=== PATIENT | male | born 1985 ===

== ENCOUNTER 2021-05-04 02:08 | Emergency (ER) | payer SELFPAY ==
--- NOTE | 2021-05-04 03:04 | ER ---
Nurse's Notes [facility] Name: Pavan Bermudez Age: 36 yrs Sex: Male : 1985 Arrival Date: 05/04/2021 Time: 02:13 Bed 15 Private MD: Diagnosis: Presentation: 05/04 02:22 Chief complaint: Patient states: right upper quad. pain that started 3-4 hour ago, em denies cough, shortness of breath, N/V/D or fever. Coronavirus screen: Vaccine status: Patient reports being unvaccinated. Ebola Screen: Patient negative for fever greater than or equal to 101.5 degrees Fahrenheit, and additional compatible Ebola Virus Disease symptoms Patient denies exposure to infectious person. Patient denies travel to an Ebola-affected area in the 21 days before illness onset. No symptoms or risks identified at this time. Initial Sepsis Screen: Does the patient meet any 2 criteria? No. Patient's initial sepsis screen is negative. Does the patient have a suspected source of infection? No. Patient's initial sepsis screen is negative. Risk Assessment: Do you want to hurt yourself or someone else? Patient reports no desire to harm self or others. Onset of symptoms was May 04, 2021. 02:22 Method Of Arrival: Ambulatory em 02:22 Acuity: JEFF 3 em Historical: - Allergies: 02:24 No Known Allergies; em - PMHx: 02:24 None; em - PSHx: 02:24 None; em - Immunization history:: Client reports having NOT received the Covid vaccine. - Social history:: Smoking status: Patient denies any tobacco usage or history of. - Family history:: not pertinent. Screenin:34 Abuse screen: Denies threats or abuse. Nutritional screening: No deficits noted. lh3 Tuberculosis screening: Fall Risk None identified. Assessment: 02:34 Pain: Complains of pain in right upper quadrant Pain does not radiate. Pain at worst lh3 was 8 out of 10 on a pain scale. Quality of pain is described as constant Pain began 3 hours ago. Is continuous. Vital Signs: 02:22 BP 122 / 82; Pulse 66; Resp 18; Temp 96.8; Pulse Ox 100% on R/A; Weight 81.65 kg; em Height 5 ft. 11 in. (180.34 cm); Pain 7/10; 02:34 BP 120 / 80; Pulse 71; Resp 18; Pulse Ox 96% on R/A; lh3 02:22 Body Mass Index 25.10 (81.65 kg, 180.34 cm) em Kristyn Coma Score: 02:34 Eye Response: spontaneous(4). Verbal Response: oriented(5). Motor Response: obeys 3 commands(6). Total: 15. ED Course: 02:13 Patient arrived in ED. bp1 02:24 Triage completed. em 02:24 Arm band placed on. em 02:34 Patient has correct armband on for positive identification. Bed in low position. Call 3 light in reach. Side rails up X 1. Adult w/ patient. Door closed. Noise minimized. 02:34 No provider procedures requiring assistance completed. lh3 02:35 Lamont Garner MD is Attending Physician. [facility] 03:03 Patient did not have IV access during this emergency room visit. em Administered Medications: 03:02 Not Given (Patient Eloped): Pepcid (famotidine) 20 mg IVP once; dilute with 10 mL 0.9% em NaCl; give over 2 minutes 03:02 CANCELLED (Patient Eloped): morphine 4 mg IVP once; RASS on ADMIN: Combtv4, Very em Agttd3, Agttd2, Rstlss1, AlertClm0, Drwsy-1, Lt Sdtn-2, Mod Sdtn-3, Dp Sdtn-4, UnArsble-5 03:03 Not Given (Patient Eloped): NS 0.9% 1000 ml IV at 1 bolus Per protocol; 1000 mL bolus em 03:03 CANCELLED (Patient Eloped): Zofran (Ondansetron) 4 mg IVP once; over 2 minutes em Outcome: 03:03 Eloped from patient exam room, after seeing physician em 03:03 Condition: improved 03:04 Patient left the ED. em Signatures: Lamont Garner MD MD cha Munoz, Edgar, RN RN em Shirley Espinal Latisha, RN RN 3
--- NOTE | 2021-05-04 03:04 | EDPHYS ---
Physician Documentation [facility] Name: Pavan Bermudez Age: 36 yrs Sex: Male : 1985 Arrival Date: 05/04/2021 Time: 02:13 Bed 15 Private MD: ED Physician Lamont Garner HPI: 05/04 02:49 This 36 yrs old Male presents to ER via Ambulatory with complaints of Right divya Sided pain. 02:49 The patient presents with abdominal pain in the upper abdomen, in the right upper divya quadrant. Onset: The symptoms/episode began/occurred just prior to arrival, this morning. The symptoms do not radiate. Associated signs and symptoms: Pertinent positives: nausea. The symptoms are described as crampy, dull. Modifying factors: The symptoms are alleviated by nothing, the symptoms are aggravated by nothing. Severity of pain: At its worst the pain was moderate in the emergency department the pain is unchanged. The patient has not experienced similar symptoms in the past. Historical: - Allergies: 02:24 No Known Allergies; em - PMHx: 02:24 None; em - PSHx: 02:24 None; em - Immunization history:: Client reports having NOT received the Covid vaccine. - Social history:: Smoking status: Patient denies any tobacco usage or history of. - Family history:: not pertinent. ROS: 02:49 Constitutional: Negative for fever, chills, and weight loss, Eyes: Negative for injury, divya pain, redness, and discharge, ENT: Negative for injury, pain, and discharge, Neck: Negative for injury, pain, and swelling, Cardiovascular: Negative for chest pain, palpitations, and edema, Respiratory: Negative for shortness of breath, cough, wheezing, and pleuritic chest pain, Back: Negative for injury and pain, : Negative for injury, bleeding, discharge, and swelling, MS/Extremity: Negative for injury and deformity, Skin: Negative for injury, rash, and discoloration, Neuro: Negative for headache, weakness, numbness, tingling, and seizure, Psych: Negative for depression, anxiety, suicide ideation, homicidal ideation, and hallucinations, Allergy/Immunology: Negative for hives, rash, and allergies, Endocrine: Negative for neck swelling, polydipsia, polyuria, polyphagia, and marked weight changes, Hematologic/Lymphatic: Negative for swollen nodes, abnormal bleeding, and unusual bruising. 02:49 Abdomen/GI: Positive for abdominal pain, of the right upper quadrant. Exam: 02:49 Constitutional: This is a well developed, well nourished patient who is awake, alert, divya and in no acute distress. Head/Face: Normocephalic, atraumatic. Eyes: Pupils equal round and reactive to light, extra-ocular motions intact. Lids and lashes normal. Conjunctiva and sclera are non-icteric and not injected. Cornea within normal limits. Periorbital areas with no swelling, redness, or edema. ENT: Nares patent. No nasal discharge, no septal abnormalities noted. Tympanic membranes are normal and external auditory canals are clear. Oropharynx with no redness, swelling, or masses, exudates, or evidence of obstruction, uvula midline. Mucous membranes moist. Neck: Trachea midline, no thyromegaly or masses palpated, and no cervical lymphadenopathy. Supple, full range of motion without nuchal rigidity, or vertebral point tenderness. No Meningismus. Chest/axilla: Normal chest wall appearance and motion. Nontender with no deformity. No lesions are appreciated. Cardiovascular: Regular rate and rhythm with a normal S1 and S2. No gallops, murmurs, or rubs. Normal PMI, no JVD. No pulse deficits. Respiratory: Lungs have equal breath sounds bilaterally, clear to auscultation and percussion. No rales, rhonchi or wheezes noted. No increased work of breathing, no retractions or nasal flaring. Back: No spinal tenderness. No costovertebral tenderness. Full range of motion. Male : Normal genitalia with no discharge or lesions. Skin: Warm, dry with normal turgor. Normal color with no rashes, no lesions, and no evidence of cellulitis. MS/ Extremity: Pulses equal, no cyanosis. Neurovascular intact. Full, normal range of motion. Neuro: Awake and alert, GCS 15, oriented to person, place, time, and situation. Cranial nerves II-XII grossly intact. Motor strength 5/5 in all extremities. Sensory grossly intact. Cerebellar exam normal. Normal gait. Psych: Awake, alert, with orientation to person, place and time. Behavior, mood, and affect are within normal limits. 02:49 Abdomen/GI: Inspection: abdomen appears normal, Bowel sounds: normal, in all quadrants, Palpation: abdomen is soft and non-tender, Liver: no appreciated palpable abnormalities, Hernia: not appreciated. Vital Signs: 02:22 BP 122 / 82; Pulse 66; Resp 18; Temp 96.8; Pulse Ox 100% on R/A; Weight 81.65 kg; em Height 5 ft. 11 in. (180.34 cm); Pain 7/10; 02:34 BP 120 / 80; Pulse 71; Resp 18; Pulse Ox 96% on R/A; lh3 02:22 Body Mass Index 25.10 (81.65 kg, 180.34 cm) em [place] Coma Score: 02:34 Eye Response: spontaneous(4). Verbal Response: oriented(5). Motor Response: obeys lh3 commands(6). Total: 15. MDM: 02:35 Patient medically screened. divya 02:52 Data reviewed: vital signs, nurses notes, lab test result(s), radiologic studies, CT divya scan, ultrasound. Data interpreted: athletic monitor: not applicable for this patient encounter. Pulse oximetry: on room air is 96 %. Counseling: I had a detailed discussion with the patient and/or guardian regarding: the historical points, exam findings, and any diagnostic results supporting the discharge/admit diagnosis, the presence of at least one elevated blood pressure reading (>120/80) during this emergency department visit, lab results, radiology results, the need for outpatient follow up. Administered Medications: 03:02 Not Given (Patient Eloped): Pepcid (famotidine) 20 mg IVP once; dilute with 10 mL 0.9% em NaCl; give over 2 minutes 03:02 CANCELLED (Patient Eloped): morphine 4 mg IVP once; RASS on ADMIN: Combtv4, Very em Agttd3, Agttd2, Rstlss1, AlertClm0, Drwsy-1, Lt Sdtn-2, Mod Sdtn-3, Dp Sdtn-4, UnArsble-5 03:03 Not Given (Patient Eloped): NS 0.9% 1000 ml IV at 1 bolus Per protocol; 1000 mL bolus em 03:03 CANCELLED (Patient Eloped): Zofran (Ondansetron) 4 mg IVP once; over 2 minutes em Disposition Summary: 05/04/21 03:04 Eloped Disposition: after being seen by provider em Reason: feeling better em Condition: Stable em Signatures: Dispatcher [employer] Lamont Quintana MD MD cha Munoz, Edgar RN RN em Corrections: (The following items were deleted from the chart) 03:02 02:49 morphine 4 mg IVP once; RASS on ADMIN: Combtv4, Very Agttd3, Agttd2, Rstlss1, em AlertClm0, Drwsy-1, Lt Sdtn-2, Mod Sdtn-3, Dp Sdtn-4, UnArsble-[address] [facility] 03: 02:49 IV Saline Lock ordered. [facility] em 03: 02:49 Labs collected and sent ordered. [facility] 03:03 02:49 Urine Dipstick-Ancillary ordered. [facility] em 03:03 02:49 Zofran (Ondansetron) 4 mg IVP once; over [address] [facility] em
[2021-05-04 03:09] VITALS: TEMP 96.8
[2021-05-04 03:11] VITALS: BP 120/80; O2SAT 96
== END 2021-05-04 03:04 | disposition left against medical advice (07) ==
LOC: ER 02:08
DX: R10.11 Right upper quadrant pain (principal)
CPT/HCPCS: 99281